=== PATIENT | female | born 1955 | race Caucasian/White ===

== ENCOUNTER 2017-03-13 15:17 | Outpatient (CLI) | payer MEDICARE ==
--- NOTE | 2017-03-13 22:12 | RAD ---
LEFT KNEE FOUR VIEWS 03/13/2017 FINDINGS: No fracture is seen. There is no joint effusion or joint space narrowing. The articular surfaces a re smooth. IMPRESSION: No acute findings. POS: HOME
== END 2017-03-13 15:18 | disposition home or self-care (01) ==
LOC: BURRAD 15:17
PROVIDERS: ATTEND Physician Assistant
DX: M25.562 Pain in left knee (principal)

== ENCOUNTER 2017-07-15 17:04 | Outpatient (CLI) | payer MEDICARE ==
[2017-07-15 17:22] LABS: #Basophils 0.1 thou/uL (0.0-0.2); #Eosinphils 0.1 thou/uL (0.0-0.7); #Lymphocytes 4.5 thou/uL (1.20-3.40); #Monocytes 0.6 thou/uL (0.11-0.59); #Neutrophils 7.8 thou/uL (1.40-6.50); %Basophils 0.7 % (0.0-1.0); %Eosinophils 0.8 % (0.0-10.0); %Lymphocytes 34.5 % (21.0-51.0); %Monocytes 4.4 % (0.0-10.0); %Neutrophils 59.6 % (42.0-75.0); Hemoglobin 14.1 g/dL (12.0-16.0); Mean Corpuscular HGB CONC 32.7 g/dL (32.0-36.0); Mean Corpuscular Hemoglobin 30.5 pg (27.0-31.0); Mean Corpuscular Volume 93.1 fl (81.0-99.0); Mean Platelet Volume 6.2 fL (7.4-10.4); Platelet Count 274 thou/uL (130-400); RBC Distribution Width 12.2 % (11.5-14.5); Red Blood Cell (RBC) Count 4.64 mill/uL (4.20-5.40); White Blood Cell (WBC) Count 13.1 thou/uL (4.8-10.8)
[2017-07-15 18:24] LABS: ALT (SGPT) 18 U/L (8-55); AST (SGOT) 15 U/L (5-34); Albumin 4.5 g/dL (3.4-4.8); Alkaline Phosphatase 92 U/L (40-150); Anion Gap 15 mmol/L (10-20); BUN (Urea Nitrogen) 18 mg/dL (9.8-20.1); Bilirubin, Total 0.4 mg/dL (0.2-1.2); Calc. Creatinine Clearance 0 mL/min (70-130); Carbon Dioxide 24 mmol/L (23-31); Chloride 106 mmol/L (98-107); Estimated GFR-MDRD 75; Globulin 2.4 g/dL (2.4-3.5); Glucose 87 mg/dL (80-115); Potassium 4.1 mmol/L (3.5-5.1); Protein, Total 6.9 g/dL (6.0-8.3); Sodium 141 mmol/L (136-145)
[2017-07-16 18:57] LABS: Creatinine, Urine 20.07 mg/dL (47-110); Microalbumin Urine Less than 1.0 mg/dL (0.5-50.0); Microalbumin/Creat Ratio 49.8 mg/g (Less than 30)
== END 2017-07-15 17:05 | disposition home or self-care (01) ==
LOC: HPCALD 17:04
PROVIDERS: ATTEND Family Medicine
DX: E11.9 Type 2 diabetes mellitus without complications (principal); I10 Essential (primary) hypertension
CPT/HCPCS: 80053; 82043; 84443; 85025

== ENCOUNTER 2019-11-22 13:14 | Emergency (ER) | payer MEDICARE ==
[2019-11-22] MEDS ORDERED: diphenhydrAMINE 25 MG CAP ONE (13:37)
[2019-11-22] MEDS ORDERED: predniSONE 20 MG TAB ONE (13:37)
== END 2019-11-22 14:08 | disposition home or self-care (01) ==
LOC: BURERS 13:14
DX: R06.02 Shortness of breath (principal); R20.2 Paresthesia of skin; T39.1X5A Adverse effect of 4-Aminophenol derivatives, initial encounter; M79.7 Fibromyalgia; F41.9 Anxiety disorder, unspecified; F17.210 Nicotine dependence, cigarettes, uncomplicated
CPT/HCPCS: 99283; J7512; Q0163

== ENCOUNTER 2021-12-01 13:14 | Emergency (ER) | payer MEDICARE | END 2021-12-01 14:15 | disposition home or self-care (01) | LOC: BURERS 13:14 | DX: M54.42 Lumbago with sciatica, left side (principal); I10 Essential (primary) hypertension; E11.9 Type 2 diabetes mellitus without complications; F17.210 Nicotine dependence, cigarettes, uncomplicated; X58.XXXA Exposure to other specified factors, initial encounter | CPT/HCPCS: 72170 ==